=== PATIENT | male | born 1930 | race Caucasian/White ===

== ENCOUNTER → 2017-05-31 | Outpatient (CLI) | payer OTHER ==
[2017-05-31] MEDS: GADOBUTROL 7.5 MMOL/7.5 ML VIAL IV ×2 (14:46)
== END | disposition home or self-care (01) ==
LOC: KCIC MRI 14:02
DX: M51.36 Other intervertebral disc degeneration, lumbar region (principal)
CPT/HCPCS: 72158; A9585

== ENCOUNTER → 2017-10-04 | Outpatient (CLI) | payer OTHER ==
[2017-10-04 15:52] LABS: ADD MAN DIFF? NO
[2017-10-04 15:59] LABS: BASO % 1 % (0-3); EOS # 0.2 x10^3/uL (0.0-0.7); EOS % 3 % (0-3); HEMOGLOBIN 12.4 g/dL (13.0-17.5); LYMPH # 0.8 x10^3/uL (1.0-4.8); LYMPH % 15 % (24-48); MEAN CORPUSCULAR HEMOGLOBIN 28 pg (25-35); MEAN CORPUSCULAR HGB CONC 34 g/dL (31-37); MEAN CORPUSCULAR VOLUME 84 fL (79-100); MONO # 0.7 x10^3/uL (0.0-1.1); MONO % 13 % (0-9); NEUT # 3.6 x10^3uL (1.8-7.7); NEUT % 68 % (31-73); PLATELET COUNT 200 x10^3/uL (140-400); RED BLOOD COUNT 4.43 x10^6/uL (4.30-5.70); RED CELL DISTRIBUTION WIDTH 15.9 % (11.5-14.5); WHITE BLOOD COUNT 5.3 x10^3/uL (4.0-11.0)
[2017-10-04 16:11] LABS: ALBUMIN 3.4 g/dL (3.4-5.0); ALBUMIN/GLOBULIN RATIO 0.9 (1.0-1.7); ALK PHOS 120 U/L (46-116); ALT (SGPT) 28 U/L (16-63); ANION GAP 7 (6-14); AST (SGOT) 15 U/L (15-37); BLOOD UREA NITROGEN 22 mg/dL (8-26); BUN/CREATININE RATIO 14 (6-20); CALCIUM 9.7 mg/dL (8.5-10.1); CARBON DIOXIDE 30 mmol/L (21-32); CHLORIDE 104 mmol/L (98-107); CREATININE 1.6 mg/dL (0.7-1.3); GFR 41.1; GLUCOSE 156 mg/dL (70-99); POTASSIUM 3.9 mmol/L (3.5-5.1); SODIUM 141 mmol/L (136-145); TOTAL BILIRUBIN 0.5 mg/dL (0.2-1.0); TOTAL PROTEIN 7.3 g/dL (6.4-8.2)
[2017-10-05 02:15] LABS: HEMOGLOBIN A1C 6.5 % (4.8-5.6)
[2017-10-05 09:19] LABS: MRSA BY PCR Negative (Negative)
== END | disposition home or self-care (01) ==
LOC: SURGPAT 13:37
DX: Z01.818 Encounter for other preprocedural examination (principal); I10 Essential (primary) hypertension; E11.9 Type 2 diabetes mellitus without complications
CPT/HCPCS: 36415; 80053; 83036; 85025; 87641; 93005

== ENCOUNTER → 2017-10-21 | Day surgery (SDC) | payer OTHER ==
[~2017-10-21] MED LIST: BACITRACIN 50,000 UNIT in IV NORMAL SALINE 1000ML BAG 1,000 ML IRR; GELATIN SPONGE SIZE 100.; HYDROcodone/APAP 5/325MG 1 TAB TABLET; IV RINGERS,LACTATED 1000ML 1,000 ML IV; KETOROLAC 60 MG/2 ML INJ FOR OR.; LIDOCAINE 1% PF 2 ML VIAL. ID; MORPHINE SULFATE 2 MG/ML DISP.SYRIN.; MORPHINE SULFATE 2 MG/ML DISP.SYRIN. IV; ONDANSETRON PF 4 MG/2 ML VIAL.; ONDANSETRON PF 4 MG/2 ML VIAL. IV; PHENYLEPHRINE 10 MG/ML VIAL.; PHENYLEPHRINE in 0.9% NACL PF 1 MG/10 ML SYRINGE. IV; PROCHLORPERAZINE 10 MG/2 ML VIAL. IV; PROPOFOL 0 ML IV; PROPOFOL 50 ML IV; REMIFENTANIL 1 MG VIAL. IV; ROCURONIUM 50 MG/5 ML VIAL.; THROMBIN TOPICAL 20,000 UNIT SPRAY.SYRN KIT TP; ceFAZolin 2GM PREMIX 2 GM/50 ML BAG IV; ePHEDrine PF IN SALINE 50 MG/5 ML DISP.SYRIN IV; fentaNYL PF VIAL 100 MCG/2 ML VIAL; fentaNYL PF VIAL 100 MCG/2 ML VIAL IV; fentaNYL PF VIAL 250 MCG/5 ML VIAL
[2017-10-21 11:20] LABS: POC GLUCOSE 135 mg/dL (70-99)
[2017-10-21] MEDS: IV RINGERS,LACTATED 1000ML 1,000 ML IV (11:40)
[2017-10-21] MEDS: THROMBIN TOPICAL 20,000 UNIT SPRAY.SYRN KIT TP (14:22)
[2017-10-21] MEDS: BACITRACIN 50,000 UNIT in IV NORMAL SALINE 1000ML BAG 1,000 ML IRR (14:22)
[2017-10-21] MEDS: GELATIN SPONGE SIZE 100. (14:22)
[2017-10-21] MEDS: KETOROLAC 60 MG/2 ML INJ FOR OR. (14:22)
[2017-10-21] MEDS: MORPHINE SULFATE 2 MG/ML DISP.SYRIN. IV ×2 (16:25→16:39)
[2017-10-21 16:39] LABS: POC GLUCOSE 106 mg/dL (70-99)
[2017-10-21] MEDS: fentaNYL PF VIAL 100 MCG/2 ML VIAL IV ×2 (16:50→17:05)
[2017-10-21] MEDS: HYDROcodone/APAP 5/325MG 1 TAB TABLET PO (17:20)
== END ==
LOC: SURG 10:17
DX: M48.062 Spinal stenosis, lumbar region with neurogenic claudication (principal); C67.9 Malignant neoplasm of bladder, unspecified; E11.9 Type 2 diabetes mellitus without complications; I10 Essential (primary) hypertension; M19.90 Unspecified osteoarthritis, unspecified site; F15.90 Other stimulant use, unspecified, uncomplicated; F40.240 Claustrophobia; Z88.4 Allergy status to anesthetic agent; E66.9 Obesity, unspecified; Z68.30 Body mass index [BMI] 30.0-30.9, adult; Z96.641 Presence of right artificial hip joint; Z98.890 Other specified postprocedural states; Z90.49 Acquired absence of other specified parts of digestive tract; G47.30 Sleep apnea, unspecified; Z98.42 Cataract extraction status, left eye; Z98.41 Cataract extraction status, right eye; Z79.899 Other long term (current) drug therapy
CPT/HCPCS: 63030; 76000; 82962; A7015; J0690; J1885; J2270; J2370; J2405; J2704; J3010; J3490; J7030